=== PATIENT | male | born 2005 | race Asian ===

== ENCOUNTER 2024-02-17 16:49 | Emergency (ER) | payer SELFPAY ==
[~2024-02-17] VITALS: Ht 167.6 cm; Wt 72.6 kg
[2024-02-17 17:09] VITALS: BP 115/63; PULSE 70; RESP 16; TEMP 98.6; O2SAT 96
== END 2024-02-17 18:00 | disposition left against medical advice (07) ==
LOC: ER 16:49
DX: S61.411A Laceration without foreign body of right hand, initial encounter (principal); Z53.21 Procedure and treatment not carried out due to patient leaving prior to being seen by health care provider; X58.XXXA Exposure to other specified factors, initial encounter; Y93.89 Activity, other specified; Y92.89 Other specified places as the place of occurrence of the external cause; Y99.8 Other external cause status